=== PATIENT | female | born 1995 ===

== ENCOUNTER 2019-04-24 21:02 | Emergency (ER) | payer SELFPAY ==
--- NOTE | 2019-04-24 21:12 | Event Note ---
Date: 04/24/19 22 y.o female with ruq pain, fever, n/v x 3 days. no appetite. The initial assessment/diagnostic orders/clinical plan/treatment(s) is/are subject to change based on patient's health status,clinical progression and re- assessment by fellow clinical providers in the ED. Further treatment and workup at subsequent clinical providers discretion. Patient/guardian urged not to elope from the ED as their condition may be serious if not clinically assessed and managed.
[2019-04-24] MEDS ORDERED: ZOFRAN IV ONE (21:37)
[2019-04-24] MEDS ORDERED: NACL 0.9% 1000 ML 1,000 ML IV ONE (21:37)
--- NOTE | 2019-04-24 21:46 | Emergency Department Report ---
ED Abdominal Pain HPI - General Chief Complaint: Fever Stated Complaint: FEVER X 3 DAYS/JUSTIN Time Seen by Provider: 04/24/19 21:20 Source: patient, family Mode of arrival: Ambulatory Limitations: Language Barrier - History of Present Illness Initial Comments: pt is a 22 y/o female who presents for RUQ pain x 1 week worsening over past three days states fever with n/v on yesterday last po intake yesterday last po intake yesterday. symptom are exacerbated by po intake symptoms relieved by rest. MD Complaint: abdominal pain Onset/Timin -: week(s) Location: diffuse, RUQ Radiation: RUQ Severity: moderate Severity scale (0 -10): 5 Quality: aching Consistency: constant Improves With: nothing Worsens With: eating Associated Symptoms: nausea, vomiting. denies: melena - Related Data LMP Date: 04/07/19 Previous Rx's Medication Instructions Recorded Last Taken Type Ciprofloxacin HCl [Ciprofloxacin 500 mg PO BID 10 Days #20 tab 04/24/19 Unknown Rx TAB] Ibuprofen [Motrin 800 MG tab] 800 mg PO Q8HR PRN #30 tablet 04/24/19 Unknown Rx Allergies Allergy/AdvReac Type Severity Reaction Status Date / Time No Known Allergies Allergy Unverified 04/24/19 21:05 ED Review of Systems ROS: Stated complaint: FEVER X 3 DAYS/JUSTIN Other details as noted in HPI Constitutional: denies: chills, fever Eyes: denies: eye pain, eye discharge, vision change ENT: denies: ear pain, throat pain Respiratory: shortness of breath. denies: cough, wheezing Cardiovascular: denies: chest pain, palpitations Endocrine: no symptoms reported Gastrointestinal: abdominal pain, nausea, vomiting. denies: diarrhea, constipation, melena Genitourinary: denies: urgency, dysuria, discharge Musculoskeletal: denies: back pain, joint swelling, arthralgia Skin: denies: rash, lesions Neurological: as per HPI Psychiatric: denies: anxiety, depression Hematological/Lymphatic: denies: easy bleeding, easy bruising ED Past Medical Hx - Past Medical History Previous Medical History?: Yes Hx Asthma: Yes - Surgical History Past Surgical History?: No - Social History Smoking Status: Never Smoker Substance Use Type: None - Medications Home Medications: Home Medications Medication Instructions Recorded Confirmed Last Taken Type Ciprofloxacin HCl [Ciprofloxacin 500 mg PO BID 10 Days #20 tab 04/24/19 Unknown Rx TAB] Ibuprofen [Motrin 800 MG tab] 800 mg PO Q8HR PRN #30 tablet 04/24/19 Unknown Rx ED Physical Exam - General Limitations: Language Barrier General appearance: alert, in no apparent distress - Head Head exam: Present: atraumatic, normocephalic - Eye Eye exam: Present: normal appearance, PERRL, EOMI Pupils: Present: normal accommodation - ENT ENT exam: Present: mucous membranes moist - Neck Neck exam: Present: normal inspection - Respiratory Respiratory exam: Present: normal lung sounds bilaterally, chest wall tenderness (right lateral chest wall tenderness to palpation no swelling no stepoff no crepitus no ecchymosis ). Absent: respiratory distress, wheezes, stridor - Cardiovascular Cardiovascular Exam: Present: regular rate, normal rhythm, normal heart sounds. Absent: systolic murmur, diastolic murmur, rubs, gallop - GI/Abdominal GI/Abdominal exam: Present: soft, normal bowel sounds. Absent: distended, tenderness, guarding, rebound, rigid, bruit, hernia - Rectal Rectal exam: Present: deferred - Extremities Exam Extremities exam: Present: normal inspection, full ROM, normal capillary refill. Absent: tenderness, pedal edema, joint swelling, calf tenderness - Back Exam Back exam: Present: normal inspection, full ROM. Absent: tenderness, CVA tenderness (R), CVA tenderness (L), muscle spasm, paraspinal tenderness, vertebral tenderness, rash noted - Neurological Exam Neurological exam: Present: alert, oriented X3, CN II-XII intact, normal gait - Psychiatric Psychiatric exam: Present: normal affect, normal mood - Skin Skin exam: Present: warm, dry, intact, normal color. Absent: rash ED Course Vital Signs 04/24/19 21:07 Temperature 100.1 F H Pulse Rate 108 H Respiratory 18 Rate Blood Pressure 101/67 O2 Sat by Pulse 100 Oximetry ED Medical Decision Making - Lab Data Result diagrams: 04/24/19 21:23 04/24/19 21:23 - Radiology Data Radiology results: report reviewed, image reviewed Ordering Physician: JESIKA MONREAL MD Date of Service: 04/24/19 Procedure(s): XR chest routine 2V Accession Number(s): [id number] cc: JESIKA MONREAL MD Fluoro Time In Minutes: CHEST 2 VIEWS INDICATION: ruq pain. COMPARISON: None FINDINGS: Support devices: None. Heart: Within normal limits. Lungs: No acute air space or interstitial disease. Pleura: No significant pleural effusion. No pneumothorax. Additional findings: None. IMPRESSION: 1. No acute findings. Signer Name: Brennon Gonzales MD Signed: 04/24/2019 10:33 PM Workstation Name: [id number] Transcribed By: WG Dictated By: Brennon Gonzales MD Electronically Authenticated By: Brennon Gonzales MD Signed Date/Time: 04/24/192232 DD/ 31 TD/TT: Ordering Physician: JESIKA MONREAL MD Date of Service: 04/24/19 Procedure(s): CT abdomen pelvis w con Accession Number(s): [id number] cc: JESIKA MONREAL MD CT abdomen pelvis w con INDICATION / CLINICAL INFORMATION: right upper quadrant pain since yesterday. TECHNIQUE: All CT scans at this location are performed using CT dose reduction for ALARA by means of automated exposure control. COMPARISON: None available. FINDINGS: No free fluid is seen in the abdomen. Diffuse low-density is seen in the right kidney consistent with pyelonephritis. Mild perinephric inflammation is also seen. The liver, spleen, left kidney, cabello creas, adrenal glands and great vessels are normal. In the pelvis, no free fluid is seen. No enlarged lymph nodes are identified. The bladder wall is thickened. What is believed to be the appendix is normal. No significant skeletal abnormality is identified. IMPRESSION: 1. Diffuse low density in the right kidney with perinephric inflammation consistent with pyelonephritis 2. Bladder wall thickening which could represent cystitis Signer Name: Keith Hernandez MD FACR Signed: 04/24/2019 11:22 PM Workstation Name: [id number] Transcribed By: MS Dictated By: Keith Hernandez MD Electronically Authenticated By: Keith Hernandez MD Signed Date/Time: 04/24/192321 DD/ 14 TD/TT: - Medical Decision Making ct: right pyelonephritis, wbc: 12.7, ua; pos luek, wbc, bactria, pt offered admission declines, pt is tolerating po intake plan. dc to home with rx for Cipro, zofran , tylenol, follow up with pcp in 2-3 days return to ed if symptoms worsen, pt verbalized agreement and understanding of discharge plan. Critical care attestation.: If time is entered above; I have spent that time in minutes in the direct care of this critically ill patient, excluding procedure time. ED Disposition Clinical Impression: Pyelonephritis Disposition: DC- TO HOME OR SELFCARE Is pt being admited?: No Does the pt Need Aspirin: No Condition: Stable Instructions: Urinary Tract Infection in Women (ED), Acute Pyelonephritis (ED) Prescriptions: Ciprofloxacin HCl [Ciprofloxacin TAB] 500 mg PO BID 10 Days #20 tab Ibuprofen [Motrin 800 MG tab] 800 mg PO Q8HR PRN #30 tablet PRN Reason: pain fever Referrals: [facility] [Outside] - 3-5 Days Forms: Work/School Release Form(ED) Time of Disposition: 23:57
[2019-04-24 21:47] LABS: Hematocrit 37.7 % (30.3-42.9); Hemoglobin 12.7 gm/dl (10.1-14.3); Mean Corpuscular HGB Conc 34 % (30-34); Mean Corpuscular Volume 84 fl (79-97); Platelet Count 121 K/mm3 (140-440); Red Cell Distribution Width 14.7 % (13.2-15.2)
[2019-04-24 21:52] LABS: Bacteria,Urine 2+ /HPF (Negative); Bilirubin,Urine SM (Negative); Blood,Urine SM (Negative); Color,Urine Amber (Yellow); Granular Casts,Urine 6 /LPF; Mucus,Urine FEW /HPF
[2019-04-24 21:55] LABS: HCG Qualitative,Urine Negative (Negative)
[2019-04-24 21:56] LABS: WBC,Urine > 182.0 /HPF (0.0-6.0)
[2019-04-24 22:00] LABS: Ictotest,Urine Negative (Negative)
[2019-04-24 22:03] LABS: Albumin 4.5 g/dL (3.9-5); Calcium 9.6 mg/dL (8.4-10.2)
[2019-04-24] MEDS ORDERED: ROCEPHIN/NS 1 GM/50 ML 1 GM/50 ML BAG IV ONE (22:08)
[2019-04-24] MEDS ORDERED: TORADOL IV ONE (22:08)
--- NOTE | 2019-04-24 22:37 | XRay Report ---
CHEST 2 VIEWS INDICATION: ruq pain. COMPARISON: None FINDINGS: Support devices: None. Heart: Within normal limits. Lungs: No acute air space or interstitial disease. Pleura: No significant pleural effusion. No pneumothorax. Additional findings: None. IMPRESSION: 1. No acute findings. Signer Name: Brennon Gonzales MD Signed: 04/24/2019 10:33 PM Workstation Name: [id number]
[2019-04-24 23:01] LABS: Band Neutrophils # (Manual) 3.3 K/mm3; Eosinophils % (Manual) 0 % (0.0-4.3); Total Cells Counted 100
[2019-04-24 23:02] LABS: Platelet Estimate Consistent w Auto
--- NOTE | 2019-04-24 23:26 | Cat Scan Report ---
CT abdomen pelvis w con INDICATION / CLINICAL INFORMATION: right upper quadrant pain since yesterday. TECHNIQUE: All CT scans at this location are performed using CT dose reduction for ALARA by means of automated e xposure control. COMPARISON: None available. FINDINGS: No free fluid is seen in the abdomen. Diffuse low-density is seen in the right kidney consistent with pyelonephritis. Mild perinephric inflammation is also seen. The liver, spleen, left kidney, pancreas , adrenal glands and great vessels are normal. In the pelvis, no free fluid is seen. No enlarged lymph nodes are identified. The bladder wall is thi ckened. What is believed to be the appendix is normal. No significant skeletal abnormality is identif ied. IMPRESSION: 1. Diffuse low density in the right kidney with perinephric inflammation consistent with pyelonephrit is 2. Bladder wall thickening which could represent cystitis Signer Name: Keith Hernandez MD FACR Signed: 04/24/2019 11:22 PM Workstation Name: [id number]
[2019-04-25 00:09] VITALS: BP 93/53
== END 2019-04-25 00:15 | disposition home or self-care (01) ==
LOC: ED 21:02 → EDBD 21:02 → ED 04-25 00:15
DX: N10 Acute pyelonephritis (principal); J45.909 Unspecified asthma, uncomplicated; Z79.899 Other long term (current) drug therapy
CPT/HCPCS: 36415; 71046; 74177; 80053; 81001; 81025; 83690; 85007; 85025; 96361; 96365; 96375; 99284; J0696; J1885; J2405; J7030; Q9967